=== PATIENT | female | born 1955 | race African-American/Black ===

== ENCOUNTER 2017-05-17 14:04 | Inpatient (IN) ==
[2017-05-17 14:32] LABS: ALLEN TEST YES; BE -12.8 mmoll (-3.0-3.0); BLOOD TYPE ARTERIAL; DRAW SITE R RADIAL; METHB 0.9 % (0.0-1.5); O2(CT) 10.2 mL/dL (15.0-23.0); PCO2(98.6) 29 mmHg (35-45); PO2(98.6) 50 mmHg (60-100); SAMPLE BLOOD; SAO2 83.5 % (95.0-100.0); THB 8.8 g/dL (11.5-17.4); pH(98.6) 7.26 (7.35-7.45)
[2017-05-17 14:34] LABS: MODALITY CANNULA
[2017-05-17] MEDS ORDERED: TIGHT: 0.2 ML/HR MISC PRN (14:46)
[2017-05-17] MEDS ORDERED: NS 2,000 ML MISC PRN (14:46)
[2017-05-17] MEDS ORDERED: HEPARIN IV PRN (14:46)
[2017-05-17 15:18] LABS: BASO% 0.3 % (0.0-0.8); EOS# 0.03 X1000 (0.0-0.7); EOS% 0.3 % (0.0-10.0); HEMOGLOBIN 7.6 g/dL (12.0-16.0); IMM GRAN# 0.02 X1000 (0.0-0.04); IMM GRAN% 0.2 % (0.0-0.5); LYMPH# 0.52 X1000 (1.2-3.4); LYMPH% 4.8 % (20.5-51.1); MANUAL DIFF NEEDED? NO; MCH 30.5 PG (27-31); MCV 92.4 FL (81-99); MONO# 0.34 X1000 (0.11-0.59); MONO% 3.1 % (1.7-9.3); NEUT% 91.3 % (42.2-75.2); PLT 227 X1000 (130-400); RBC 2.49 XMIL (4.2-5.4)
[2017-05-17 16:42] LABS: ALBUMIN 3.8 g/dL (3.5-5.0); CALCIUM 5.1 mg/dL (8.8-10.2); POTASSIUM 6.7 mmol/L (3.5-5.1)
--- NOTE | 2017-05-17 17:38 | PROVIDER DOCUMENTATION ---
This chart was entered by Nahomy Arango Scribe, acting as scribe for Pasha Saunders MD. HPI-Respiratory General - General Source: patient - History of Present Illness-Resp Quality of Pain: reports: tightness Severity in ED: reports: mild Onset/Duration: reports: just prior to arrival Timing: reports: still present Cough Quality/Degree: reports: no cough Current Respiratory Medication Therapy: Initiated see nurses note Modifying Factors: improves with: nothing Associated Symptoms: reports: denies symptoms Similar Symptoms Previously?: Yes Recently seen or treated by another doctor?: No <Pasha Saunders - Last Filed: 05/17/17 17:37> <Randall Turner - Last Filed: 05/17/17 20:28> - General Chief Complaint: Shortness of Breath Stated Complaint: SOB Time Seen by Provider: 05/17/17 14:34 Allergies/Adverse Reactions: Patient Allergies Allergy/AdvReac Type Severity Reaction Status Date / Time No Known Allergies Allergy Verified 05/17/17 14:35 Home Medications: Home Medication List Medication Instructions Recorded Confirmed Last Taken Type Calcium Acetate 667 mg PO DAILY 05/17/17 05/17/17 Unknown History Cholecalciferol (Vit D3) [Vitamin 5,000 unit PO DAILY 05/17/17 05/17/17 Unknown History D3] Folic Acid 1 mg PO DAILY 05/17/17 05/17/17 Unknown History Furosemide [Lasix] 80 mg PO DAILY 05/17/17 05/17/17 Unknown History Hydrocodone/Acetaminophen [[place] 325 mg PO PRN PRN 05/17/17 05/17/17 Unknown History 7.5-325 Tablet] Levetiracetam [Keppra] 500 mg PO DAILY 05/17/17 05/17/17 Unknown History Levothyroxine [Synthroid] 75 microgm PO DAILY 05/17/17 05/17/17 Unknown History Lisinopril [Zestril] 5 mg PO DAILY 05/17/17 05/17/17 Unknown History Metoprolol [Lopressor] 50 mg PO DAILY 05/17/17 05/17/17 Unknown History Phenytoin Sodium Extended 100 mg PO DAILY 05/17/17 05/17/17 Unknown History Sevelamer Carbonate [Renvela] 800 mg PO DAILY 05/17/17 05/17/17 Unknown History Sodium Bicarbonate 650 mg PO TID 05/17/17 05/17/17 Unknown History Thiamine HCl 100 mg PO DAILY 05/17/17 05/17/17 Unknown History - History of Present Illness-Resp Nature of Presenting Problem: Pt is a 61 y/o F presents to the ED via EMS for SOB. Pt states she is a dialysis patient and has not been to dialysis for one week. Pt denies chest pain. (Nahomy Arango) Pt is a 61 y/o F presents to the ED via EMS for SOB. Pt states she is a dialysis patient and has not been to dialysis for one week. Pt denies chest pain. (Pasha Saunders) Review of Systems - Adult - REVIEW OF SYSTEMS - ADULT Constitutional: reports: no symptoms reported Eyes: reports: no symptoms reported Ears, Nose, Mouth & Throat: reports: no symptoms reported Cardiovascular: reports: no symptoms reported Respiratory: reports: shortness of breath. denies: cough, wheezing Gastrointestinal: reports: no symptoms reported Genitourinary: reports: no symptoms reported Musculoskeletal: reports: no symptoms reported Integumentary: reports: no symptoms reported Neurological: reports: no symptoms reported Psychiatric: reports: no symptoms reported Endocrine: reports: no symptoms reported Hematologic/Lymphatic: reports: no symptoms reported Allergic/Immunologic: reports: no symptoms reported All Other Systems: Reviewed and Negative <Pasha Saunders - Last Filed: 05/17/17 17:37> - REVIEW OF SYSTEMS - ADULT Constitutional: reports: no symptoms reported Respiratory: reports: shortness of breath <Randall Turner - Last Filed: 05/17/17 20:28> Past History - Adult - PAST MEDICAL HISTORY-ADULT Review of Records: reports: Nursing Assessment Review, Medications Reviewed, Social history reviewed & non-contributory. Major Childhood Illnesses: reports: denies history Cardiovascular: reports: HTN Respiratory: reports: denies history Gastrointestinal: reports: denies history Obstetrical/Gynecological: reports: denies history Genitourinary: reports: dialysis, kidney disease Musculoskeletal: reports: denies history Neurological: reports: denies history Endocrine/Immune: reports: Diabetes, thyroid disorder Other Conditions: reports: denies history - PRIOR SURGERIES/PROCEDURES Surgical/Procedure History: reports: reviewed, not pertinent - IMMUNIZATION STATUS Childhood Immunizations: See Nurse Assessment Flu Vaccine: See Nurse Assessment - FAMILY HISTORY Family History: reviewed, not pertinent - SOCIAL HISTORY Smoking: denies Substance Use: none presently/history of abuse (history), alcohol Alcohol Use Frequency: sober (former use) Living Situation: family <Pasha Saunders - Last Filed: 05/17/17 17:37> - PAST MEDICAL HISTORY-ADULT Review of Records: reports: Old Records Reviewed, Nursing Assessment Review, Medications Reviewed, Social history reviewed & non-contributory. <Randall Turner - Last Filed: 05/17/17 20:28> Physical Exam-General - PHYSICAL EXAM-ADULT Initial Vital Signs Reviewed: Yes - CONSTITUTIONAL General Appearance: alert, mild distress. negative: lethargic, slow to respond - EYES Eyes: PERRL/EOMI, pink conjunctivae. negative: pale conjunctivae, sunken eyes - HEAD, EARS, NOSE, MOUTH & THROAT HENMT: normal ENT inspection. negative: angioedema, hearing deficit - NECK Neck: normal inspection. negative: lymphadenopathy, tender lateral - RESPIRATORY Respiratory: chest non-tender, respiratory distress, wheezing, increased rate. negative: crackles, rhonchi - CARDIOVASCULAR Cardiovascular: normal peripheral pulses, tachycardia. negative: systolic murmur - GASTROINTESTINAL (ABDOMEN) Abdominal Exam: normal bowel sounds, non tender, soft. negative: distended, rebound - LYMPHATIC Lymphatic: no adenopathy. negative: enlargement, streaking - MUSCULOSKELETAL Back Exam: normal inspection. negative: ecchymosis, swelling Extremity: normal inspection. negative: deformity, erythema - SKIN Integumentary: normal color, normal turgor, warm/dry. negative: diaphoresis, ecchymosis, erythema, rash - NEUROLOGIC Neurologic: grossly normal. negative: aphasia, facial droop - PSYCHIATRIC Psych/Mental Status: normal mood/affect, oriented x 3. negative: paranoid, tearful <Pasha Saunders - Last Filed: 05/17/17 17:37> - PHYSICAL EXAM-ADULT Initial Vital Signs Reviewed: Yes - CONSTITUTIONAL General Appearance: alert, mild distress <Randall Turner - Last Filed: 05/17/17 20:28> Progress - PLAN OF CARE/RESULTS Result Diagrams: 05/17/17 15:10 05/17/17 15:10 - EKG 1 Time of EKG reading by physician:: 15:41 EKG Read and Signed by:: Pasha Saunders EKG Interpretation (*Must complete 3 of following elements*): Abnormal Rate: 94 Rhythm: normal sinus rhythm Comments: possible left atrial enlargement; prolonged QT - CHANGE OF SHIFT REPORT (ED Provider) Report Given and Care Transferred to:: Dr. Turner Time of Transfer: 17:50 Items Pending: Other (complete dialysis) <Pasha Saunders - Last Filed: 05/17/17 17:37> - PLAN OF CARE/RESULTS Result Diagrams: 05/17/17 15:10 05/17/17 19:00 - CONSULTS/PCP/HOSPITALIST Notification #1 *Consult/PCP/Hospitalist*: Dr. Whitley, hospitalist Time Discussed: 20:25 Consult Disposition: Admit <Randall Turner - Last Filed: 05/17/17 20:28> - PLAN OF CARE/RESULTS Progress/Plan/Lab Results: Vital Signs - 8 hr 05/17/17 14:05 05/17/17 14:38 05/17/17 14:56 Temperature 98.2 F Pulse Rate 104 H 96 H 97 H Respiratory Rate 36 H 15 29 H Blood Pressure 189/106 175/101 176/100 O2 Sat by Pulse Oximetry 88 L 100 97 05/17/17 18:36 05/17/17 20:19 Temperature Pulse Rate 102 H 105 H Respiratory Rate 20 22 Blood Pressure 140/89 153/88 O2 Sat by Pulse Oximetry 100 98 Laboratory Results - last 24 hr 05/17/17 05/17/17 05/17/17 14:30 15:10 15:10 WBC 10.91 H RBC 2.49 L Hgb 7.6 L Hct 23.0 L MCV 92.4 MCH 30.5 MCHC 33.0 RDW Std Deviation 17.9 H Plt Count 227 MPV 10.0 Immature Gran % (Auto) 0.2 Neut % (Auto) 91.3 H Lymph % (Auto) 4.8 L [place] % (Auto) 3.1 Eos % (Auto) 0.3 Baso % (Auto) 0.3 Immature Gran # (Auto) 0.02 Neut # (Auto) 9.97 H Lymph # (Auto) 0.52 L [place] # (Auto) 0.34 Eos # (Auto) 0.03 Baso # (Auto) 0.03 Specimen Type ARTERIAL Sample Site R RADIAL pH 7.26 L pCO2 29 L pO2 50 L HCO3 14.7 L Base Excess -12.8 L Oxyhemoglobin 81.7 L* ABG O2 Sat (Calculated) 10.2 L ABG O2 Saturation 83.5 L ABG Carboxyhemoglobin 1.30 ABG Methemoglobin 0.9 Dez Test YES A-a O2 Difference 170.0 Total Hemoglobin 8.8 L Lactate 2.10 Liter Flow 4.0 Blood Gas Modality CAN[place]ULA FiO2 % 36.0 Sodium 142 Potassium 6.7 H* Chloride 97 L Carbon Dioxide 15 L Anion Gap 30 BUN 105 H Creatinine 7.4 H Estimated GFR/1.73 m2 7 BUN/Creatinine Ratio 14 Glucose 175 H POC Glucose Calculated Osmolality 320 Calcium 5.1 L* Phosphorus 11.7 H Albumin 3.8 05/17/17 05/17/17 16:27 19:00 WBC RBC Hgb Hct MCV MCH MCHC RDW Std Deviation Plt Count MPV Immature Gran % (Auto) Neut % (Auto) Lymph % (Auto) [place] % (Auto) Eos % (Auto) Baso % (Auto) Immature Gran # (Auto) Neut # (Auto) Lymph # (Auto) [place] # (Auto) Eos # (Auto) Baso # (Auto) Specimen Type Sample Site pH pCO2 pO2 HCO3 Base Excess Oxyhemoglobin ABG O2 Sat (Calculated) ABG O2 Saturation ABG Carboxyhemoglobin ABG Methemoglobin Dez Test A-a O2 Difference Total Hemoglobin Lactate Liter Flow Blood Gas Modality FiO2 % Sodium 143 Potassium 4.3 D Chloride 95 L Carbon Dioxide 18 L Anion Gap 30 BUN 65 H Creatinine 5.0 H Estimated GFR/1.73 m2 11 BUN/Creatinine Ratio 13 Glucose 105 H POC Glucose 177 H Calculated Osmolality 304 Calcium 7.0 L* D Phosphorus Albumin Orders Category Date Time Status Dialysate Bath: DIRECTED Care 05/17/17 14:46 Active Dialysate Flow: DIRECTED Care 05/17/17 14:46 Active Dialysis Blood Flow: DIRECTED Care 05/17/17 14:46 Active Dialysis Machine Settings: DIRECTED Care 05/17/17 14:46 Active Dialysis Treatment Time: DIRECTED Care 05/17/17 14:46 Active Dialysis Treatment Weight ROUTINE Care 05/17/17 14:46 Active Dialysis UF Removal Amount: DIRECTED Care 05/17/17 14:46 Active Dialyzer Type: DIRECTED Care 05/17/17 14:46 Active NRSG - Obtain Dialysis Consent NOW Care 05/17/17 14:46 Active CHEST-PORTABLE [RAD] Stat Exams 05/17/17 19:37 Taken ABG [RESP] Routine Lab 05/17/17 14:30 Completed BLOOD CULTURE [BLDCUL] Stat Lab 05/17/17 20:15 Ordered BMP [BASIC METABOLIC PANEL] [CHEM] Stat Lab 05/17/17 19:00 Completed CBC WITH ELECTRONIC DIFF [HEME] Timed Lab 05/17/17 15:10 Completed LACTATE, PLASMA [CHEM] Stat Lab 05/17/17 20:16 Uncollected RENAL PROFILE [CHEM] Timed Lab 05/17/17 15:10 Completed 0.9% Sodium Chloride Inj [Ns] 2,000 ml Med 05/17/17 14:46 Discontinued MISC As Directed CefTRIAXONE [Rocephin] 1 gm Med 05/17/17 20:15 Active 0.9% Sodium Chloride Inj [Ns] 50 ml IV NOW Heparin Med 05/17/17 14:46 Discontinued 1,000 unit IV BOLUS PRN Heparin 1000 Units/ml [Tight: 0.2 ml/Hr] Med 05/17/17 14:46 Discontinued 1 each MISC DIRECTED PRN Departure <Pasha Saunders - Last Filed: 05/17/17 17:37> - Departure Date of Disposition Decision: 05/17/17 Time of Disposition Decision: 20:26 Certified Medical Emergency: Emergent - Critical Care Note This patient required my direct & personal management of CC.: No <Randall Turner - Last Filed: 05/17/17 20:28> - Departure DIAGNOSIS: Hypocalcemia, ESRD (end stage renal disease) on dialysis Pneumonia Qualifiers: Pneumonia type: due to unspecified organism Laterality: right Lung location: lower lobe of lung Qualified Code(s): J18.1 - Lobar pneumonia, unspecified organism Disposition: ADMITTED INPATIENT 09 Condition: Stable Referrals and Follow-Ups: Jorge Dsouza MD [Primary Care Provider] - Attestation - Physician/ THI Attestation Patient care was provided by Advanced Practice Provider:: No The physician spent face to face time with patient:: Yes Advanced Practice Provider documentation review:: Supervising physician onsite and consulted in the evaluation and care of this patient. The physician did have a face to face encounter with the patient. <Randall Turner Filed: 05/17/17 20:28> This chart was documented by the indicated scribe, (Nahomy Arango, Sylvia) and accurately reflects the services I performed and decisions made by me, Pasha Saunders MD, as attested by the provider's signature.
[2017-05-17 19:29] LABS: POTASSIUM 4.3 mmol/L (3.5-5.1)
[2017-05-17] MEDS ORDERED: ROCEPHIN 1 GM in NS 50 ML IV ONE (20:15)
--- NOTE | 2017-05-17 20:29 | Diag Imaging Result Doc PS360 ---
EXAM: CHEST-PORTABLE - 05/17/2017 HISTORY: sob TECHNIQUE: Portable chest 1950 COMPARISON: None. FINDINGS: Heart size appears borderline enlarged. There is infiltrate at the medial right base which is suspicious for pneumonia. There is apparent mild infiltrate at the medial left base. There is no pleural effusion or pneumothorax identified. There is a central venous catheter with its tip at the inferior right atrium. IMPRESSION: Right basilar infiltrate suspicious for pneumonia. Mild infiltrate at left base. Electronically signed by Hans Manuel 05/17/2017 8:27 PM
[2017-05-17] MEDS ORDERED: NORCO-7.5 PO PRN (23:08)
[2017-05-17] MEDS ORDERED: ZOFRAN IV PRN (23:08)
[2017-05-17] MEDS ORDERED: ZITHROMAX 500 MG/NS 500 MG/250 ML IVPB IV ONE (23:35)
--- NOTE | 2017-05-18 01:26 | HISTORY AND PHYSICAL ---
CHIEF COMPLAINT: Shortness of breath. HISTORY OF PRESENT ILLNESS: This is a 61-year-old female with history of end-stage renal, hypertension, bilateral below the knee amputation, who presents with shortness of breath. Shortness of breath was significant when she came in. She had tachypnea and dyspnea. She has not had dialysis for about a week reportedly, unclear why. When she came in she was tachypneic, 36 breaths per minute. Saturations were 88% on 4 L. She urgently underwent dialysis. She was also hyperkalemic with a potassium of 6.7. I have seen her post dialysis and her respiratory status is much improved. Her x-ray though showed a right lower lobe pneumonia so she was admitted for that and respiratory failure. She is not in distress but she is very weak and she will not kind of get up and around. She just has difficulty even just moving in the bed. She denies cough or fevers or chills. No kateryna chest pain and again her breathing has overall improved. Patient admitted for pneumonia. PAST MEDICAL HISTORY: 1. Hypertension. 2. End-stage renal disease. She has a catheter in her right subclavian. 3. Chronic pain. 4. Seizure disorder. 5. Hypothyroidism. 6. History of CVA. PAST SURGICAL HISTORY: Denies. SOCIAL HISTORY: She per record has a history of alcohol. No tobacco. Unclear what her living situation is but she does have family members at home. ALLERGIES: No known drug allergies. MEDICATIONS: She is on calcium acetate 667 daily, vitamin D3 5000 units daily, folic acid 1 daily, Lasix 80 daily, [place] p.r.n., Keppra 500 daily, Synthroid 75 mcg daily, Zestril 5 daily, Lopressor 50 daily, phenytoin 100 daily, sevelamer 800 daily, sodium bicarbonate 650 t.i.d. and thiamine 100 daily. REVIEW OF SYSTEMS: Ten systems reviewed, otherwise negative. PHYSICAL EXAMINATION: VITAL SIGNS: Blood pressure 135/88, heart rate of 102, respiratory rate 18, temperature 98.3 degrees, 96% on room air. GENERAL: A thin female in no acute distress. HEAD: Normocephalic, atraumatic. EYES: Pupils equal, round, reactive to light. Extraocular movements were intact. EAR/NOSE/THROAT: Moist mucous membranes. NECK: Supple. CARDIOVASCULAR: Regular rate and rhythm. PULMONARY: Diminished at the bases. No wheezing, rales. GASTROINTESTINAL: Soft, nontender, nondistended. Bowel sounds are positive. She did have a lower extremity scar. EXTREMITIES: No clubbing or cyanosis. LYMPHATICS: No peripheral edema. Her legs were both in sleeves as far as her AKAs. LABORATORY DATA: Repeat potassium went from 6.7-4.3, bicarb up to 18, BUN and creatinine 65 and 5, calcium was 7. White count 10.9, hemoglobin and hematocrit 7 and 23, platelets 227,000. PROBLEM LIST: This is a 61-year-old female with history of hypertension, end-stage renal, who presents in acute respiratory failure secondary to volume overload associated with lack of dialysis access the last week and also a right lower lobe pneumonia. 1. Volume overload, end-stage renal. She is clinically improved after dialysis. However, we will continue her regular medications. Dr. Solis will be consulted to evaluate for further dialysis needs. 2. Right lower lobe pneumonia. We will continue Rocephin and azithromycin and follow clinically. 3. Hypertension, appears to be well stabilized. 4. Hyperkalemia. She seems to be doing okay from that standpoint. She is on sevelamer, calcium acetate. We will monitor the calcium levels. 5. Seizure disorder, appears to be controlled. Continue her regular medications. We will check a Dilantin level. 6. Anemia. She is fairly anemic at this point. We will check iron stores and follow. Hold on transfusion unless there seems to be a significant change. 7. This is a service admission, refer to Dr. Solis. cc: Eb Whitley MD
[2017-05-18] MEDS: NORCO-7.5 PO PRN ×3 (02:15→18:32)
[2017-05-18] MEDS: SYNTHROID PO SCH ×2 (05:51→07:54)
--- NOTE | 2017-05-18 05:52 | CONSULTATION ---
DATE OF CONSULTATION: 05/17/2017 REASON FOR ADMISSION: To emergency room with shortness of breath. REASON FOR CONSULTATION: End-stage renal disease management. CONSULTING PHYSICIAN: Chip Pak MD HISTORY OF PRESENT ILLNESS: This is a 61-year-old female with a Past Medical History of end-stage renal disease on dialysis on a Monday, Monday, and Monday schedule at the [facility] in [place]. She has been living at [facility]. The patient was to go to dialysis today but got there and had some diarrhea and refused to stay for treatment. She had shortness of breath and was brought to the emergency room. In discussion with the [facility] personnel, she is frequently noncompliant in going to her treatments or staying for her full treatment. The patient was placed on Ventimask and we have been asked to go ahead and perform her dialysis to assist with fluid volume. PAST MEDICAL HISTORY: ESRD. Diabetes. Hypothyroidism. ALLERGIES: No known drug allergies. MEDICATIONS: As per chart. SOCIAL HISTORY: No ETOH, tobacco or illicit drug use. FAMILY HISTORY: Noncontributory. REVIEW OF SYSTEMS: Shortness of breath. PHYSICAL EXAMINATION: Vital Signs: As per chart. General: This is an elderly female resting in bed. She is awake. She follows commands. HEENT: Normocephalic, atraumatic. She has a Ventimask on. Neck: Supple. Trachea midline. She has positive JVD. Cardiovascular: Regular rate and rhythm. Questionable gallop. Pulmonary: She has decreased breath sounds to the bases. She had some rales bilaterally. Abdomen: Soft, positive bowel sounds. : Not inspected. Extremities: Bilateral BKA. Trace dependent edema to the backs of the thighs. Integumentary: Skin is warm and dry otherwise. Dialysis fistula accessed. No bleeding. Neurologic: Grossly nonfocal. LABORATORY DATA: WBC of 10.9, hemoglobin 7.6, hematocrit 23.0. Sodium 142, potassium 6.7, creatinine 7.4, calcium 5.1, phosphorus 11.7, and albumin 3.8. ASSESSMENT AND PLAN: End-stage renal disease with noncompliance. We will go ahead and dialyze the patient on a 2 K bath 4 hour treatment today. We will remove her fluid to her dry weight. The patient's lab indicates she is likely extremely noncompliant. Her phosphorus is 11.7, potassium 6.7, and CO2 15. We will defer to the emergency room physician for further workup and treatment. If she remains in the hospital tomorrow, we will evaluate and determine if she needs additional therapy. Dictated by SANTY Escobar for Obinna Solis MD Patient seen, data reviewed, discussed with Johanne Schmitt on 05/17/17. I agree with the above assessment and plan of care. cc: Obinna Solis MD [facility]
[2017-05-18 06:14] LABS: HEMATOCRIT 26.3 % (37.0-47.0); HEMOGLOBIN 8.6 g/dL (12.0-16.0); MCH 31.2 PG (27-31); MCHC 32.7 g/dL (33-37); MCV 95.3 FL (81-99); MPV 10.7 FL (7.4-10.4); RBC 2.76 XMIL (4.2-5.4)
--- NOTE | 2017-05-18 06:42 | EKG Report ---
Test Performed on : 05/17/2017 3:41:52 PM Test Reason : SOB Blood Pressure : / mmHG Vent. Rate : 094 BPM Atrial Rate : 094 BPM P-R Int : 182 ms QRS Dur : 098 ms QT Int : 432 ms P-R-T Axes : 070 049 057 degrees QTc Int : 540 ms Normal sinus rhythm. Possible Left atrial enlargement Prolonged QT Abnormal ECG No previous ECGs available Unconfirmed Result
[2017-05-18 06:49] LABS: POTASSIUM 4.5 mmol/L (3.5-5.1)
[2017-05-18 07:22] LABS: CALCIUM 6.3 mg/dL (8.8-10.2)
[2017-05-18] MEDS: DILANTIN PO SCH (08:42)
[2017-05-18] MEDS: ZITHROMAX PO SCH (08:42)
[2017-05-18] MEDS: SODIUM BICARBONATE PO SCH ×3 (08:43→18:35)
[2017-05-18] MEDS: FOLIC ACID PO SCH (08:43)
[2017-05-18] MEDS: LOPRESSOR PO SCH (08:43)
[2017-05-18] MEDS: CALTRATE 600 + D PO SCH (08:43)
[2017-05-18] MEDS: VITAMIN B-1 PO SCH (08:44)
[2017-05-18] MEDS: PRINIVIL PO SCH (08:44)
[2017-05-18] MEDS: RENVELA POWDER PACKET PO SCH (08:44)
[2017-05-18] MEDS: VITAMIN D PO SCH (08:44)
[2017-05-18] MEDS: LASIX PO SCH (08:44)
[2017-05-18] MEDS: KEPPRA PO SCH (08:45)
[2017-05-18] MEDS: HEPARIN SUBQ SCH ×2 (08:45→22:16)
--- NOTE | 2017-05-18 10:47 | Diag Imaging Result Doc PS360 ---
CHEST-2 VIEWS - 05/18/2017 INDICATION: Assess infiltrate present on film from 05/17 TECHNIQUE: COMPARISON: 05/17/2017 FINDINGS: Stable right dialysis catheter with the tip very low, in the IVC actually. There is decrease in the alveolar infiltrates in the right middle lobe. No new infiltrates. Heart size and pulmonary vascularity is grossly normal. IMPRESSION: See findings. Electronically signed by Matt Haider 05/18/2017 10:45 AM
--- NOTE | 2017-05-18 13:20 | PROGRESS NOTE ---
DATE: 05/18/2017 SUBJECTIVE: She is sitting up. Ate her breakfast without difficulty. She is on room air, and has no shortness of breath. OBJECTIVE: Vital Signs: Blood pressure 165/84, heart rate 90, respirations 6, afebrile. Room air O2 saturation 100%. General: She is in no acute distress. She is thin, with low muscle mass. Conjunctivae are pink. Pupils are equal. Neck: Neck veins are not distended. Heart: Regular, without gallops. Lungs: Equal breath sounds. No crackles or wheezes. Abdomen: Soft, nontender. Bowel sounds present. Extremities: No edema, clubbing, or cyanosis. IMPRESSION: 1. End-stage kidney disease. Electrolytes and acid-base are acceptable. Appears euvolemic. Okay for discharge from my perspective. 2. Pulmonary infiltrate. I will order a 2-view chest x-ray today. Certainly, she does not appear toxic, and I would certainly think she could be treated with oral antibiotics as an outpatient. I discussed this with Dr. Whitley, who will make those final decisions. cc: Obinna Solis MD
--- NOTE | 2017-05-18 16:28 | PROGRESS NOTE ---
DATE: 05/18/2017 SUBJECTIVE: This patient states that she is feeling better. No acute events overnight. She is breathing better. She has no complaint of chest pain. She has pneumonia and we have started this patient on antibiotics. This patient will be discharged in the morning because she is coming from [facility]. OBJECTIVE: Vital Signs: Temperature 98.5 degrees, pulse 80, respiratory rate 15, blood pressure 141/92, oxygen saturation 100% on room air. HEENT: Head normocephalic. No trauma. PERRLA. Neck: Supple. No JVD. No masses. Central trachea. Chest: Right lower lung rhonchi. Otherwise, mild rales at the bases. Abdomen: Soft, nontender, nondistended. No hepatosplenomegaly. Extremities: She has bilateral below-knee amputation I do not see any swelling. Neurological: The patient is alert and oriented x3. No focal deficits. LABORATORY: WBC 11.4, hemoglobin is 8.6, hematocrit 26.3, platelets 245,000. Sodium 145, potassium 4.5, chloride 94, bicarbonate 17, BUN 74, creatinine 5.8, glucose 104, calcium 6.3. ASSESSMENT AND PLAN: 1. Fluid overload in a patient with end-stage renal disease. This patient has been dialyzed. She looks better. I do not think she needs more dialysis. Hopefully tomorrow this patient will be discharged in the morning. 2. Right lower lobe pneumonia. Continue with Rocephin and azithromycin. I will switch this patient to p.o. antibiotics and discharge her. 3. Hypertension. Stable. 4. Hyperkalemia. Resolved. 5. Seizure disorder. Controlled. Continue with the same medication. 6. Anemia stable. Hemoglobin is 8.6. 7. Hypocalcemia. I will replace the calcium. cc: Dominic Gusman MD
[2017-05-19] MEDS: NORCO-7.5 PO PRN (03:14)
[2017-05-19] MEDS: SYNTHROID PO SCH ×2 (05:31→08:17)
[2017-05-19 06:03] LABS: MANUAL DIFF NEEDED? NO
[2017-05-19 06:06] LABS: BASO% 1.1 % (0.0-0.8); EOS# 0.22 X1000 (0.0-0.7); HEMATOCRIT 21.6 % (37.0-47.0); HEMOGLOBIN 7.1 g/dL (12.0-16.0); IMM GRAN% 1.4 % (0.0-0.5); LYMPH# 1.59 X1000 (1.2-3.4); MCH 30.7 PG (27-31); MCHC 32.9 g/dL (33-37); MCV 93.5 FL (81-99); MONO# 0.62 X1000 (0.11-0.59); MONO% 8.6 % (1.7-9.3); MPV 10.5 FL (7.4-10.4); NEUT% 63.9 % (42.2-75.2); PLT 182 X1000 (130-400); RBC 2.31 XMIL (4.2-5.4)
[2017-05-19] MEDS ORDERED: HEPARIN ONE ×2 (06:58→08:39)
[2017-05-19] MEDS ORDERED: NS 2,000 ML ONE ×2 (06:58→08:39)
[2017-05-19] MEDS ORDERED: TIGHT: 0.2 ML/HR MISC PRN (07:42)
[2017-05-19] MEDS ORDERED: HEPARIN IV PRN (07:42)
[2017-05-19] MEDS ORDERED: NS 2,000 ML MISC PRN (07:42)
[2017-05-19 08:18] LABS: POTASSIUM 5.9 mmol/L (3.5-5.1)
[2017-05-19 08:22] LABS: CALCIUM 5.5 mg/dL (8.8-10.2)
[2017-05-19] MEDS ORDERED: CALCIUM GLUCONATE 4.65 MEQ in NS 50 ML IV ONE (08:28)
--- NOTE | 2017-05-19 11:31 | PROGRESS NOTE ---
DATE: 05/19/2017 SUBJECTIVE: She is sitting up in bed on room air. She states she feels better and has no shortness of breath today. OBJECTIVE: Vital Signs: Blood pressure 167/88, heart rate 82, respirations 20, afebrile. General: She is in no acute distress. Skin: Warm and dry. Conjunctivae are pink. Neck: Neck veins are not visible in the erect position. Heart: Regular with S4 gallop. Lungs: Have equal breath sounds. No crackles or wheezes. Abdomen: Soft, nontender. Bowel sounds present. Extremities: Have no edema, clubbing, or cyanosis. LABORATORY DATA: Sodium 134, potassium 5.9, chloride 84, bicarbonate 16, BUN 84, creatinine 6.2, hemoglobin 7.1. IMPRESSION: 1. End-stage kidney disease with volume overload. Volume status is normal by exam. She will have her routine dialysis today. Okay for discharge from my perspective thereafter. 2. Electrolytes: Modest hyperkalemia and significant hypocalcemia. Continue current care. Dialysis with 2.5 calcium bath. 3. Anemia. We will administer 2 units packed red blood cells on dialysis. cc: Obinna Solis MD
--- NOTE | 2017-05-19 11:39 | DISCHARGE SUMMARY ---
ADMISSION DATE: 05/17/2017 DISCHARGE DATE: 05/19/2017 CONSULTATION: Dr. Obinna Solis with Nephrology. PERTINENT PROCEDURES: Chest x-ray showed right basilar infiltrate suspicious for pneumonia and mild infiltrate at the left base. Follow-up chest x-ray showed decrease in the infiltrates in the right middle lobe. No new infiltrates. DISCHARGE DIAGNOSES: 1. Fluid volume overload in a patient with end-stage renal disease. She will continue with hemodialysis. Followed by Nephrology with electrolytes and Hb are acceptable. She is euvolemic and the patient will be discharged after dialysis back to [facility]. 2. Right lower lobe pneumonia. Continue with p.o. antibiotics. 3. Hypertension stable. 4. Hypokalemia resolved. 5. Seizure disorder controlled. Continue with home medications. 6. Anemia stable. 7. Hypocalcemia. Patient will receive calcium supplementation. HOSPITAL COURSE: Ms. Pearson is a 61-year-old female who carries a past medical history of end- stage renal disease, hypertension, bilateral [id number] amputation who presented to the ED with shortness of breath. She was tachypneic and dyspneic. She had not had dialysis for about a week reportedly, unclear why. She was breathing 36 times per minute. Her saturations were 88% on 4 L. She urgently went to dialysis. She was hyperkalemic with potassium of 6.7. She was actually assessed post dialysis and her respiratory status was much improved. Her x-ray did show a right lower lobe pneumonia. She was admitted for that and respiratory failure. She continued to receive her dialysis. She was started on IV antibiotics for her pneumonia as well as her home medications, and after her dialysis today she is appropriate for discharge back to [facility]. VITAL SIGNS AT TIME OF DISCHARGE: Temperature is 98.2 degrees, heart rate 89, respirations 18, blood pressure 132/81. O2 is 99% on room air. DISCHARGE DIET: Renal. DISCHARGE MEDICATIONS: As per Dr. Huddleston. Please see MAR. FOLLOWUP: Ms. Pearson is being discharged back to [facility]. She has been educated on being compliant with her hemodialysis and her end-stage renal disease. She will need to take p.o. antibiotics as instructed. She can return to the ED for any worsening of symptoms. Dictated by SANTY Heredia for Dominic Gusman MD cc: Dominic Gusman MD MTDD
[2017-05-19] MEDS: CALTRATE 600 + D PO SCH (12:57)
[2017-05-19] MEDS: FOLIC ACID PO SCH (12:57)
[2017-05-19] MEDS: SODIUM BICARBONATE PO SCH ×3 (12:58→14:18)
[2017-05-19] MEDS: RENVELA POWDER PACKET PO SCH (12:58)
[2017-05-19] MEDS: DILANTIN PO SCH (13:02)
[2017-05-19] MEDS: VITAMIN B-1 PO SCH (13:02)
[2017-05-19] MEDS: HEPARIN SUBQ SCH (13:03)
[2017-05-19] MEDS: KEPPRA PO SCH (13:04)
[2017-05-19] MEDS: ZITHROMAX PO SCH (13:04)
[2017-05-19] MEDS: PRINIVIL PO SCH (13:05)
[2017-05-19] MEDS: LASIX PO SCH (13:06)
[2017-05-19] MEDS: VITAMIN D PO SCH (13:06)
[2017-05-19] MEDS: LOPRESSOR PO SCH (13:06)
[2017-05-19 14:03] VITALS: BP 158/66
--- NOTE | 2017-05-23 03:37 | DISCHARGE SUMMARY ---
ADMISSION DATE: 05/17/2017 DISCHARGE DATE: 05/19/2017 ADDENDUM: The patient seen and examined by me [id number]. This patient was feeling much better. She was not complaining of shortness of breath or chest pain. She has been dialyzed and the decision was made to send this patient back to [facility]. She has a past medical history of hypertension, hypokalemia, end-stage renal disease, seizure disorder, anemia, and like I said, she was admitted to the hospital secondary to shortness of breath and fluid overload. After dialysis she was feeling much better and we replaced the electrolytes and followed up with her vital signs. This patient is stable to be discharged. cc: Dominic Gusman MD
== END 2017-05-19 16:48 ==
LOC: ED 14:04 → SUATTDRO 22:27 → 4N 22:27
PROVIDERS: ATTEND Internal Medicine